=== PATIENT | male | born 1995 | race Caucasian/White ===

== ENCOUNTER 2017-01-16 03:01 | Emergency (ER) | payer OTHER ==
[2017-01-16 03:05] VITALS: BP 141/78; PULSE 60; RESP 16; TEMP 98.1; O2SAT 97
--- NOTE | 2017-01-16 03:38 | EDPHY ---
H & P Stated Complaint: L foot pain Time Seen by Provider: 01/16/17 03:10 HPI/ROS: Chief complaint: Left ankle pain HPI: 21-year-old male twisted his left ankle playing soccer yesterday evening. Patient has been having increasing pain since then. Initially he is able to weight bear and [place] remainder of the game but pain has been getting worse for the last several hours. Has not had any significant swelling. No numbness or tingling. No prior injuries. ROS: 10 point Review of Systems is negative except as noted in the HPI. Past medical history: None Medications: None Allergies: None Social history: No smoking, occasional alcohol Physical exam: Gen: Awake, Alert, No Distress Ext: no edema, he has got mild tenderness at the anterior talofibular ligament in his lateral left ankle. No malleolar tenderness. No midfoot tenderness. He does have decreased range of motion secondary to pain. 2+ DP and PT pulses. Cap refills less than 2 seconds. He is neurologically intact in all dermatomes. Skin: no rash Neuro: CN II-XII intact, Sensation grossly intact, Strength 5/5 in bilateral upper and lower extremities - Personal History Current Tetanus/Diphtheria Vaccine: Yes Current Tetanus Diphtheria and Acellular Pertussis (TDAP): Yes - Medical/Surgical History Hx Asthma: No Hx Chronic Respiratory Disease: No Hx Diabetes: No Hx Cardiac Disease: No Hx Renal Disease: No Hx Cirrhosis: No Hx Alcoholism: No Hx HIV/AIDS: No Hx Splenectomy or Spleen Trauma: No Other PMH: denies - Social History Smoking Status: Never smoked Constitutional: Initial Vital Signs Temperature (C) 36.7 C 01/16/17 03:03 Heart Rate 60 01/16/17 03:03 Respiratory Rate 16 01/16/17 03:03 Blood Pressure 141/78 H 01/16/17 03:03 O2 Sat (%) 97 01/16/17 03:03 O2 Delivery Mode Room Air Allergies/Adverse Reactions: No Known Allergies Allergy (Unverified 01/16/17 03:03) Home Medications: Medication Instructions Recorded NK [No Known Home Meds] 01/16/17 Medical Decision Making - Diagnostics Imaging: Left ankle x-rays negative per my interpretation ED Course/Re-evaluation: Patient with left ankle sprain. He has been placed in an air splint by the electromyographic technician. He has been given ankle sprain instructions. He will be discharged with follow-up as an outpatient. Departure - Departure Disposition: Home, Routine, Self-Care Clinical Impression: Ankle sprain Condition: Good Instructions: Ankle Sprain (ED), Ankle Stirrup Splint (ED) Additional Instructions: May apply ice for 15 minutes for every hour while awake. Alternate Tylenol with ibuprofen every 4 hours for pain. Follow up with student the [facility] in about a week for recheck if symptoms are not improving. Referrals: NONE *PRIMARY CARE P,. [Primary Care Provider] - As per Instructions [facility] [place] [facility] [Outside] - As per Instructions
== END 2017-01-16 03:44 | disposition home or self-care (01) ==
DX: S93.402A Sprain of unspecified ligament of left ankle, initial encounter (principal); X58.XXXA Exposure to other specified factors, initial encounter; Y99.8 Other external cause status; Y93.66 Activity, soccer
CPT/HCPCS: L4350